=== PATIENT | female | born 1930 | race Caucasian/White ===

== ENCOUNTER 2018-03-27 13:12 | Emergency (ER) | payer MEDICARE ==
[~2018-03-27] VITALS: Ht 160 cm; Wt 89.4 kg
--- NOTE | 2018-03-27 13:55 | RAD ---
Examination: 3 views of the right knee HISTORY: History of fall, pain COMPARISON: None available FINDINGS: Right total knee arthroplasty changes in normal alignment. There is no acute fracture or dislocation identified. Moderate soft tissue swelling identified surrounding the ankle joint. IMPRESSION: 1. No acute osseous findings. Right total knee arthroplasty changes in normal alignment. 2. Moderate soft tissue swelling identified surrounding the ankle joint with significant soft tissue injury Electronically signed by: Ismael Braga MD (03/27/2018 1:52 PM) [facility]
--- NOTE | 2018-03-27 14:15 | RAD ---
PQRS Compliance Statement: One or more of the following individualized dose reduction techniques were utilized for this examination: 1. Automated exposure control 2. Adjustment of the mA and/or kV according to patient size 3. Use of iterative reconstruction technique CT HEAD WITHOUT CONTRAST History: LEGS GAVE OUT EARLIER TODAY. Comparison: None. Technique: Axial images are obtained of the head from the skull base through the vertex without IV contrast. Findings: No mass-effect, midline shift, extra-axial fluid collection, hemorrhage, or obvious acute infarction is identified. Basilar cisterns are patent. The ventricles and sulci are prominent, consistent with age-related cerebral atrophy. There is periventricular white matter hypoattenuation. This is a nonspecific finding but is commonly due to chronic small vessel ischemic disease. Bone windows demonstrate no acute calvarial abnormality. Minimal mucosal thickening bilateral maxillary sinuses. The other visualized paranasal sinuses are clear. Mastoid air cells are well aerated. IMPRESSION: 1. No acute intracranial abnormality. 2. 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 Electronically signed by: Juancarlos Ni MD (03/27/2018 2:11 PM) [id number]
--- NOTE | 2018-03-27 14:25 | PHYS DOC ---
Past Medical History Past Medical History: Hypertension, Hypothyroid Past Surgical History: Cholecystectomy, Hysterectomy, Knee Replacement, Tonsillectomy, Other Additional Past Surgical Histo: R knee, thyroidectomy Alcohol Use: None Drug Use: None Adult General Chief Complaint Chief Complaint: OTHER COMPLAINTS [facility] HPI Patient is a 87 year old female who presents with knee pain after her legs went out from under her today. The patient states that she was shopping at [employer] and putting her groceries in the car when she held her legs go out. She states that the right knee went on to the ground in a genuflected position. She was unable to get back onto her feet. She states that some of the employees at [employer] attempted to help her but needed to call EMS assistance. The patient states EMS insisted that she come to the emergency department. Review of Systems Review of Systems Constitutional: Denies fever or chills [] Respiratory: Denies cough or shortness of breath [] Cardiovascular: No additional information not addressed in HPI [] Musculoskeletal: See history of present illness Integument: Denies rash or skin lesions [] Neurologic: Denies headache, focal weakness or sensory changes [] Endocrine: Denies polyuria or polydipsia [] All other systems were reviewed and found to be within normal limits, except as documented in this note. Current Medications Current Medications Current Medications Medications (Trade) Dose Ordered Sig/Gustavo Start Time Stop Time Status Last Admin Dose Admin Clonidine HCl (Catapres) 0.1 mg 1X ONCE 03/27/18 15:15 03/27/18 15:16 DC 03/27/18 15:11 0.1 MG Metoprolol Tartrate (Lopressor Vial) 5 mg 1X ONCE 03/27/18 16:00 03/27/18 16:03 DC 03/27/18 17:07 5 MG Allergies Allergies Allergies Coded Allergies Type Severity Reaction Last Updated Verified No Known Drug Allergies 03/27/18 No Physical Exam Physical Exam Constitutional: Well developed, well nourished, no acute distress, non-toxic appearance. [] Cardiovascular:Heart rate regular rhythm, no murmur [] Lungs & Thorax: Bilateral breath sounds clear to auscultation [] Abdomen: Bowel sounds normal, soft, no tenderness, no masses, no pulsatile masses. [] Skin: Warm, dry, no erythema, no rash. [] Extremities: tenderness to patella just from it resting on the ground, no cyanosis, no clubbing, ROM intact, no edema. [] Neurologic: Alert and oriented X 3, normal motor function, normal sensory function, no focal deficits noted. [] Psychologic: Affect normal, judgement normal, mood normal. [] Current Patient Data Vital Signs Vital Signs Date Time Temp Pulse Resp B/P (MAP) Pulse Ox O2 Delivery O2 Flow Rate FiO2 03/27/18 17:30 60 20 185/79 (114) 95 Room Air 03/27/18 13:12 98.4 98.4 Lab Values Laboratory Tests Test 03/27/18 14:15 White Blood Count 4.6 x10^3/uL (4.0-11.0) Red Blood Count 3.89 x10^6/uL (3.50-5.40) Hemoglobin 12.4 g/dL (12.0-15.5) Hematocrit 37.4 % (36.0-47.0) Mean Corpuscular Volume 96 fL (79-100) Mean Corpuscular Hemoglobin 32 pg (25-35) Mean Corpuscular Hemoglobin Concent 33 g/dL (31-37) Red Cell Distribution Width 16.0 % (11.5-14.5) H Platelet Count 124 x10^3/uL (140-400) L Neutrophils (%) (Auto) 75 % (31-73) H Lymphocytes (%) (Auto) 13 % (24-48) L Monocytes (%) (Auto) 10 % (0-9) H Eosinophils (%) (Auto) 2 % (0-3) Basophils (%) (Auto) 1 % (0-3) Neutrophils # (Auto) 3.4 x10^3uL (1.8-7.7) Lymphocytes # (Auto) 0.6 x10^3/uL (1.0-4.8) L Monocytes # (Auto) 0.4 x10^3/uL (0.0-1.1) Eosinophils # (Auto) 0.1 x10^3/uL (0.0-0.7) Basophils # (Auto) 0.0 x10^3/uL (0.0-0.2) Sodium Level 144 mmol/L (136-145) Potassium Level 3.8 mmol/L (3.5-5.1) Chloride Level 110 mmol/L (98-107) H Carbon Dioxide Level 28 mmol/L (21-32) Anion Gap 6 (6-14) Blood Urea Nitrogen 23 mg/dL (7-20) H Creatinine 0.8 mg/dL (0.6-1.0) Estimated GFR (Cockcroft-Gault) 67.8 BUN/Creatinine Ratio 29 (6-20) H Glucose Level 112 mg/dL (70-99) H Calcium Level 9.0 mg/dL (8.5-10.1) Total Bilirubin 1.0 mg/dL (0.2-1.0) Aspartate Amino Transferase (AST) 17 U/L (15-37) Alanine Aminotransferase (ALT) 19 U/L (14-59) Alkaline Phosphatase 55 U/L (46-116) Total Protein 6.2 g/dL (6.4-8.2) L Albumin 3.3 g/dL (3.4-5.0) L Albumin/Globulin Ratio 1.1 (1.0-1.7) Laboratory Tests 03/27/18 14:15 Laboratory Tests 03/27/18 14:15 EKG EKG [] Radiology/Procedures Radiology/Procedures []PATIENT: JANICE BLACKWELL EACCOUNT: [id number]#: [id number] : 1930 LOCATION: ER AGE: 87 SEX: F EXAM STATUS: PRE ER ORD. PHYSICIAN: MAHSA CASTREJON APRN REASON: pain after fall in parking lot PROCEDURE: KNEE RIGHT 3V Examination: 3 views of the right knee HISTORY: History of fall, pain COMPARISON: None available FINDINGS: Right total knee arthroplasty changes in normal alignment. There is no acute fracture or dislocation identified. Moderate soft tissue swelling identified surrounding the ankle joint. IMPRESSION: 1. No acute osseous findings. Right total knee arthroplasty changes in normal alignment. 2. Moderate soft tissue swelling identified surrounding the ankle joint with significant soft tissue injury Electronically signed by: Ismael Braga MD (03/27/2018 1:52 PM) [facility] DICTATED and SIGNED BY: ISMAEL BRAGA MD DATE: 03/27/18 4741 Course & Med Decision Making Course & Med Decision Making Pertinent Labs and Imaging studies reviewed. (See chart for details) []The patient's blood pressure was elevated in the emergency department. She was given 1 dose of clonidine with no real resolution of her hypertension. This was then followed with [address] Winn did come to the emergency department to evaluate the patient and agrees with discharge to home upon resolution of her hypertension. Dragon Disclaimer Dragon Disclaimer This electronic medical record was generated, in whole or in part, using a voice recognition dictation system. Departure Departure Impression: Primary Impression: Hypertension Additional Impression: Knee pain Disposition: 01 HOME, SELF-CARE Condition: STABLE Referrals: TEJ CARREON MD (PCP) Patient Instructions: Hypertension, Knee Pain Additional Instructions: Follow-up with your primary care provider for recheck in 3 days or return to the emergency department if worsening. Problem Qualifiers MAHSA CASTREJON APRN Mar 27, 2018 14:25
[2018-03-27 14:44] LABS: BASO % 1 % (0-3); EOS # 0.1 x10^3/uL (0.0-0.7); EOS % 2 % (0-3); HEMATOCRIT 37.4 % (36.0-47.0); HEMOGLOBIN 12.4 g/dL (12.0-15.5); LYMPH # 0.6 x10^3/uL (1.0-4.8); LYMPH % 13 % (24-48); MEAN CORPUSCULAR HEMOGLOBIN 32 pg (25-35); MEAN CORPUSCULAR HGB CONC 33 g/dL (31-37); MEAN CORPUSCULAR VOLUME 96 fL (79-100); MONO # 0.4 x10^3/uL (0.0-1.1); MONO % 10 % (0-9); NEUT # 3.4 x10^3uL (1.8-7.7); NEUT % 75 % (31-73); PLATELET COUNT 124 x10^3/uL (140-400); RED BLOOD COUNT 3.89 x10^6/uL (3.50-5.40); WHITE BLOOD COUNT 4.6 x10^3/uL (4.0-11.0)
[2018-03-27 15:00] LABS: CREATININE 0.8 mg/dL (0.6-1.0); GFR 67.8; POTASSIUM 3.8 mmol/L (3.5-5.1)
[2018-03-27 15:06] LABS: ALBUMIN 3.3 g/dL (3.4-5.0); ALBUMIN/GLOBULIN RATIO 1.1 (1.0-1.7); TOTAL PROTEIN 6.2 g/dL (6.4-8.2)
[2018-03-27] MEDS ORDERED: cloNIDine HCL 0.1 MG TABLET PO ONE (15:15)
[2018-03-27] MEDS ORDERED: METOPROLOL TARTRATE 5 MG/5 ML VIAL. IVP ONE (16:00)
[2018-03-27 18:13] VITALS: BP 174/73
--- NOTE | 2018-03-28 06:47 | EKG ---
[facility] [address] [place] [address] Test Date: 2018-03-27 Test Time: 16:10:54 Pat Name: JANICE BLACKWELL Department: Room: Gender: F [employer] Project [employer]: : 1930 Requested By: MAHSA CASTREJON Order Number: [id number] Reading MD: Measurements Intervals [place] Rate: 70 P: 90 MA: 198 QRS: -60 QRSD: 116 T: 32 QT: 420 QTc: 457 Interpretive Statements SINUS RHYTHM ATRIAL PREMATURE COMPLEX(ES) ABNORMAL LEFT AXIS DEVIATION R-S TRANSITION ZONE IN V LEADS DISPLACED TO THE LEFT LEFT ANTERIOR FASCICULAR BLOCK LEFT VENTRICULAR HYPERTROPHY ABNORMAL ECG RI6.01 No previous ECG available for comparison
== END 2018-03-27 18:15 | disposition home or self-care (01) ==
LOC: ER 13:12
DX: M25.561 Pain in right knee (principal); I10 Essential (primary) hypertension; G89.11 Acute pain due to trauma; E03.9 Hypothyroidism, unspecified; Z96.651 Presence of right artificial knee joint; W18.39XA Other fall on same level, initial encounter; Y93.89 Activity, other specified; Y99.8 Other external cause status; Y92.481 Parking lot as the place of occurrence of the external cause
CPT/HCPCS: 36415; 70450; 73562; 80053; 85025; 96374; 99285; J3490; 93005